=== PATIENT | female | born 1980 | race Caucasian/White ===

== ENCOUNTER 2021-03-18 17:36 | Emergency (ER) | payer MEDICARE, MEDICAID ==
[~2021-03-18] VITALS: Ht 152.4 cm; Wt 93.4 kg
[~2021-03-18 17:36] MED LIST: FLEXERIL PO; NOHOMEMEDICATIONS; NORCO 5-325 TA1 EACH PO
[2021-03-18] MEDS ORDERED: LIPITOR 20 MG T20 M1 PO (17:58)
[2021-03-18] MEDS ORDERED: LYRICA150 MG PO (17:58)
[2021-03-18] MEDS ORDERED: VITAMIN D3125 MC2 PO (17:58)
[2021-03-18] MEDS ORDERED: FAMOTIDINE 20 M20 MG PO (17:58)
[2021-03-18] MEDS ORDERED: ZYRTEC10 M4 PO (18:00)
[2021-03-18 18:32] LABS: URINE BILIRUBIN NEGATIVE (Negative); URINE BLOOD NEGATIVE (Negative); URINE CLARITY CLEAR; URINE COLOR YELLOW; URINE GLUCOSE-RANDOM NEGATIVE (Negative); URINE KETONES NEGATIVE (Negative); URINE LEUKOCYTES-REFLEX TRACE (Negative); URINE NITRITE-REFLEX NEGATIVE (Negative); URINE PROTEIN NEGATIVE (Negative); URINE UROBILINOGEN 0.2 E.U./dl (0.2-1.0)
[2021-03-18 18:44] LABS: BACTERIA-REFLEX 1-9 Few /HPF (None Seen); MUCUS None Seen strn/LPF (None Seen); SQUAMOUS >10 Many /LPF (0-3); URINE WBC-REFLEX 0-5 Rare /HPF (0-5)
[2021-03-18 18:45] LABS: CASTS None Seen /LPF (None Seen); CRYSTALS None Seen /LPF (None Seen); URINE RBC None Seen /HPF (0-2)
[2021-03-18 18:45] LABS: ABSOLUTE BASOPHILS 0.1 thou/uL (0.0-0.2); ABSOLUTE EOSINOPHILS 0.2 thou/uL (0.0-0.7); ABSOLUTE LYMPHOCYTES 3.1 thou/uL (0.8-5.3); ABSOLUTE MONOCYTES 0.4 thou/uL (0.0-1.2); ABSOLUTE NEUTROPHILS 4.3 thou/uL (1.6-8.1); BASOPHILS 0.7 %; EOSINOPHILS 1.9 %; HEMATOCRIT 45.6 % (37.0-47.0); HEMOGLOBIN 15.7 gm/dL (12.0-15.0); MCHC 34.3 g/dL (28.0-37.0); MCV 90.3 fL (80.0-100.0); MPV 7.6 fl. (7.2-11.1); NUCLEATED RBCS 0 /100WBC; PLATELET COUNT* 221 thou/uL (150-400); POLYS 53.4 %; RBC 5.05 mil/uL (4.20-5.00); RDW-CV 13.3 % (10.5-14.5)
[2021-03-18 18:58] LABS: CALCIUM 9.4 mg/dL (8.5-10.1); POTASSIUM 3.9 mmol/L (3.5-5.1)
[2021-03-18 19:05] LABS: ALBUMIN 4.1 g/dL (3.4-5.0); TOTAL BILIRUBIN 0.7 mg/dL (<0.1-1.0); TOTAL PROTEIN 7.7 g/dL (6.4-8.2)
[2021-03-18] MEDS ORDERED: NUCYNTA ER50 MG PO (20:29)
[2021-03-18] MEDS ORDERED: BENTYL 10 MG CA10 M1 PO (20:30)
[2021-03-18] MEDS ORDERED: ONDANSETRON HCL4 M2 PO (20:30)
[2021-03-18 21:09] VITALS: BP 140/99
--- NOTE | 2021-03-22 10:28 | EKG ---
[place] [address] ELECTROCARDIOGRAM REPORT Name: ALEXANDRIA ARCHER Room: [facility]#: [id number] Admission: 03/18/21 Attend Phys: Discharge: 03/18/21 Date of : 76 Date of Service: 03/18/211828 Report #: [id number] THIS REPORT FOR: //name// [facility] ED Test Date: 2021-03-18 Test Time: 18:29:12 Pat Name: ALEXANDRIA ARCHER Department: Room: Gender: [place] Working Supervisor: MARTINA : 1980 Requested By: Sherice Santos Order Number: [id number] MD: Marlon Donnelly Measurements Intervals [place] Rate: 85 P: 31 WA: 151 QRS: 8 QRSD: 101 T: 35 QT: 382 QTc: 455 Interpretive Statements Sinus rhythm Compared to ECG 09/12/2011 09:49:41 No significant changes Electronically Signed On 03-22-2021 10:28:25 CDT by Marlon Donnelly [email or web address] <ELECTRONICALLY SIGNED> By: Marlon Donnelly MD, MERGED WITH [facility] 03/22/21 1028 1829 1829 Marlon Donnelly MD, MERGED WITH [facility] /EPI
== END 2021-03-18 21:15 | disposition home or self-care (01) ==
LOC: M.ERS 17:36
PROVIDERS: Nurse Practitioner Family
DX: M54.5 Low back pain (principal); R10.31 Right lower quadrant pain; R10.12 Left upper quadrant pain; E78.00 Pure hypercholesterolemia, unspecified; M79.7 Fibromyalgia; Z88.6 Allergy status to analgesic agent; Z88.5 Allergy status to narcotic agent; Z88.8 Allergy status to other drugs, medicaments and biological substances; Z90.710 Acquired absence of both cervix and uterus; Z90.89 Acquired absence of other organs; Z90.49 Acquired absence of other specified parts of digestive tract